=== PATIENT | female | born 2000 | race Caucasian/White ===

== ENCOUNTER 2021-05-20 22:14 | Emergency (ER) | payer MEDICAID, SELFPAY ==
[2021-05-20 22:19] VITALS: BP 132/78; PULSE 86; RESP 16; TEMP 36.7; O2SAT 100
[2021-05-20 22:38] VITALS: BP 118/76; PULSE 69; RESP 18; TEMP 36.7; O2SAT 100
[2021-05-20 23:31] VITALS: PULSE 82; RESP 18; O2SAT 100
--- NOTE | 2021-05-20 23:40 | ED.GENADULT ---
HPI - General Adult General Chief complaint: Extremity Injury, Lower Stated complaint: left hip/side pain Time Seen by Provider: 05/20/21 23:03 Source: RN notes reviewed History of Present Illness HPI narrative: Patient presents to emergency department for left leg pain. Patient states that this afternoon she developed pain in her left lateral hip and into her left groin pain was described as sharp and stabbing in nature. States she been under general been wearing tight pants all day and this seemed to worsen the symptoms she denies any direct pain or trauma states nothing else made the pain better or worse but the pain has improved since she has been in the emergency department she denies any back pain, fevers, abdominal pain nausea or vomiting dysuria numbness or tingling in the extremities or any other symptoms. Of note upon my initial evaluation with the patient she states that she just discussed with her father and they are from out of town and her father wishes her to go to emergency department closer to her and wishes to leave AGAINST MEDICAL ADVICE at this time and would like no further work-up in our emergency Review of Systems Review of Systems: Gen.: Denies fevers or chills ENT: Denies congestion Respiratory: Denies shortness of breath or cough CV: Denies chest pain or palpitations GI: Denies abdominal pain nausea, emesis or diarrhea denies burning, urgency, frequency or hematuria Musculoskeletal: See HPI Neuro: Denies numbness, tingling, weakness or focal weakness Skin: Denies rash Except as documented, all other systems reviewed and negative PMFSH Past Medical History Medical History (Updated 05/20/21 @ 23:42 by Marck Govea DO) Patient denies significant medical history Social History Social History (Updated 05/20/21 @ 23:41 by Marck Govea DO) Smoking status: Never smoker Exam Narrative: APPEARANCE: No acute distress, nontoxic, resting in bed EYES: EOMI HEENT: Normocephalic, atraumatic, OMM RESPIRATORY: No respiratory distress Clear to auscultation bilaterally with no rhonchi wheezing or rales. CARDIOVASCULAR: Regular rate and rhythm without murmurs rubs or gallops. ABDOMINAL: Soft, nontender, nondistended, no rebound or guarding Back: No midline thoracic lumbar tenderness palpation MUSCULOSKELETAl: Moves all extremities. No clubbing, cyanosis or edema. Mild tenderness over left anterior hip no tenderness to the lateral or posterior hip no tenderness left knee or ankle left lower extremity neurovascular intact full range of motion left hip with pain with full extension of the hip NEURO: Awake and alert. Following commands, speech normal, no focal deficits SKIN:: Warm, dry. No rashes lesions or abrasions PSYCHIATRIC: Normal affect/mood, Course Course Emergency Course: Patient has chosen to refuse further care. Risks of an incomplete evaluation and treatment were discussed with the patient including potential for or permanent disability were discussed with the patient seems to understand these risks but still desires to refuse further care. Patient recommended to follow up with her primary care physician in the next possible interval, specifically they?re told they can return to the ED at any time to resume care. AMA form was filled out by the patient Vital Signs Vital signs: Vital Signs Temperature 98.1 F 05/20/21 22:19 Pulse Rate 86 05/20/21 22:19 Respiratory Rate 16 05/20/21 22:19 Blood Pressure 132/78 05/20/21 22:19 Pulse Oximetry 100 05/20/21 22:19 Temperature 98.1 F 05/20/21 22:38 Pulse Rate 82 05/20/21 23:31 Respiratory Rate 18 05/20/21 23:31 Blood Pressure 118/76 05/20/21 22:38 Pulse Oximetry 100 05/20/21 23:31 Medical Decision Making Vital Signs Vital Signs: Vital Signs Temperature 98.1 F 05/20/21 22:19 Pulse Rate 86 05/20/21 22:19 Respiratory Rate 16 05/20/21 22:19 Blood Pressure 132/78 05/20/21 22:19 Pulse Oximetry
== END 2021-05-20 23:52 | disposition left against medical advice (07) ==
PROVIDERS: Emergency Provider Emergency Medicine
DX: M25.552 Pain in left hip (principal)
CPT/HCPCS: 99282